=== PATIENT | female | born 1960 | race Asian ===

== ENCOUNTER 2024-06-29 12:07 | Emergency (ER) | payer BC, OTHER ==
[2024-06-29] MEDS: Acetaminophen/HYDROcodone 325-5 MG Tab PO ONE (14:28)
== END 2024-06-29 14:30 | disposition home or self-care (01) ==
LOC: JD.ED 12:07
DX: S52.531A Colles' fracture of right radius, initial encounter for closed fracture (principal); S52.611A Displaced fracture of right ulna styloid process, initial encounter for closed fracture; Z88.0 Allergy status to penicillin; Z79.899 Other long term (current) drug therapy; Z86.16 Personal history of COVID-19; Z90.49 Acquired absence of other specified parts of digestive tract; W19.XXXA Unspecified fall, initial encounter
CPT/HCPCS: 29125; 73110; 73130; 99283; A9270